=== PATIENT | female | born 1960 | race Caucasian/White ===

== ENCOUNTER 2023-06-11 13:11 | Outpatient (CLI) | payer BC, SELFPAY ==
--- NOTE | 2023-06-11 13:20 | CRLHL7_ITS ---
For Patients: As a result of the Century Cures Act, medical imaging exams and procedure reports are released immediately into your electronic medical record. You may view this report before your referring provider. If you have questions, please contact your health care provider. BILATERAL SCREENING MAMMOGRAM WITH COMPUTER-AIDED DETECTION AND TOMOSYNTHESIS TECHNIQUE: CC, MLO and Implant displaced views were obtained. These mammographic images have been obtained using full-field digital technique. These mammographic images were interpreted with the benefit of computer-aided detection. Breast Tomosynthesis was used in this interpretation. COMPARISON FILM: 08/09/20, 07/27/19, 08/16/17. FINDINGS: There are scattered areas of fibroglandular density IMPRESSION: There is no radiographic evidence for malignancy. ASSESSMENT: BI-RADS Category 2: Benign RECOMMENDATION: Routine screening mammogram in 1 year. A lay language report of this examination will be provided to the patient. Yrn White M.D. Diagnostic Radiologist [email or web address] JOSEPH/Dictated by: Yrn White MD @ 06/15/2023 8:28:00 AM (Electronically Signed)
== END 2023-06-11 13:12 | disposition home or self-care (01) ==
LOC: MAMMO 13:12
PROVIDERS: PCP Family Medicine; Visit Provider Family Medicine
DX: Z12.31 Encounter for screening mammogram for malignant neoplasm of breast (principal)
CPT/HCPCS: 77063; 77067

== ENCOUNTER 2024-09-18 10:01 | Outpatient (CLI) | payer BC, SELFPAY | END 2024-09-18 10:02 | disposition home or self-care (01) | LOC: NFLDREF 09-21 05:45 | PROVIDERS: PCP Family Medicine; Referring Provider Family Medicine; Visit Provider Family Medicine | DX: Z13.220 Encounter for screening for lipoid disorders (principal); Z13.228 Encounter for screening for other metabolic disorders | CPT/HCPCS: 80053; 80061 ==

== ENCOUNTER 2024-09-19 12:49 | Outpatient (CLI) | payer BC, SELFPAY ==
--- NOTE | 2024-09-19 13:00 | CRLHL7_ITS ---
For Patients: As a result of the Century Cures Act, medical imaging exams and procedure reports are released immediately into your electronic medical record. You may view this report before your referring provider. If you have questions, please contact your health care provider. BILATERAL SCREENING MAMMOGRAM WITH COMPUTER-AIDED DETECTION AND TOMOSYNTHESIS, 09/19/2024 TECHNIQUE: CC, MLO and Implant displaced views were obtained. These mammographic images have been obtained using full-field digital technique. These mammographic images were interpreted with the benefit of computer-aided detection. Breast Tomosynthesis was used in this interpretation. COMPARISON FILM: 06/11/23, 08/09/20, 07/17/19. FINDINGS: There are scattered areas of fibroglandular density IMPRESSION: There is no radiographic evidence for malignancy. ASSESSMENT: BI-RADS Category 2: Benign RECOMMENDATION: Routine screening mammogram in 1 year. A lay language report of this examination will be provided to the patient. Yrn White M.D. Diagnostic Radiologist [email or web address] DAVIDSON/[email or web address]: Transcribed: 8:58 am DW/Dictated by: Yrn White MD @ 09/20/2024 12:38:00 PM (Electronically Signed)
== END 2024-09-19 12:50 | disposition home or self-care (01) ==
LOC: MAMMO 12:49
PROVIDERS: PCP Family Medicine; Visit Provider Family Medicine
DX: Z12.31 Encounter for screening mammogram for malignant neoplasm of breast (principal)
CPT/HCPCS: 77063; 77067

== ENCOUNTER 2025-02-05 08:56 | Day surgery (SDC) | payer BC, SELFPAY ==
[2025-02-05] VITALS (13 sets, daily range): BP systolic 133–174; BP diastolic 74–90; PULSE 48–68; RESP 14–16; TEMP 36.4–36.9; O2SAT 95–99; BMI 26.2
[2025-02-05] MEDS: SODIUM CHLORIDE 0.9 % (FLUSH) 10 ML SYRINGE IVF (09:30)
[2025-02-05] MEDS: LACTATED RINGERS 1000 ML 1,000 ML 100 ML IV (09:30)
[2025-02-05] MEDS: CEFAZOLIN 1 GM inj IVP (09:41)
[2025-02-05] MEDS: BUPIVACAINE 0.25% 30 ML INJECTION (10:18)
[2025-02-05] MEDS: LIDOCAINE 1%-EPI 1:100,000 20 ML INFILTRATI (10:18)
--- NOTE | 2025-02-05 10:34 | PM.GSPRC ---
Operative Note Date of procedure: 02/05/25 Pre-op diagnosis: 1. Symptomatic umbilical hernia. Post-op diagnosis: Same Type of Procedure: 1. Open umbilical hernia repair with mesh. Indications: 65-year-old female was seen in clinic for evaluation of an umbilical hernia. Patient noticed supraumbilical bulge over a year prior to her presentation. She felt like when her grandkids jumped on her lap, the bulge was pushed on and caused her pain. She was also doing weightlifting and any other abdominal exercises increased her pain. The pain was described as dull. Patient denied any episodes of incarceration. On clinical exam she had a grape sized bulge at the superior aspect of the umbilicus that was not reducible. Patient had pain with attempted to reduce this hernia. Given patient's clinical history and her physical exam, an open umbilical hernia repair was recommended. The procedure was discussed in detail. The risks associated procedure including infection, bleeding, injury to preperitoneal organs, injury to intra-abdominal organs, and hernia recurrence were all discussed with the patient, and she agreed to proceed. Procedure Description: After discussing the risks and benefits of the procedure, the patient signed informed consent.? The operative site was marked and the patient was brought to the operating room and placed on the operating table in supine position.? Care was taken to pad the patient's pressure points.?? The patient was then intubated by anesthesia.?? The operative site was then prepped and draped in the usual sterile fashion.? A time-out was then performed. Local anesthetic was injected at the surgical site. A curvilinear skin incision was made with a scalpel just above umbilicus. Subcutaneous tissue was dissected with electrocautery down to the hernia sac and anterior fascia. Preperitoneal fat was incarcerated through the fascial defect. The hernia sac was dissected off of the anterior fascia and subcutaneous fat around the fascial defect was dissected away from the fascial defect with cautery. The main fascial defect was approximately 7 mm in largest dimension but there was also a tiny defect superior and left lateral to the main defect. The tiny defect was about 3 mm in diameter. These 2 defects were connected by fascial bridge that was approximately 4 mm. I elected to combine the 2 defects into 1 common fascial opening. Preperitoneal space was then developed with cautery for mesh placement. A small Ventralex ST mesh patch was then inserted into preperitoneal space and secured to the fascia using 0-0 Neurolon interrupted stitches. I examined my closure and no defects were identified between the fascia and the mesh. Fascia was re-approximated over the mesh with a running 2-0 Vicryl stitch. Additional local anesthetic was injected into subcutaneous tissues. An umbilicus was tacked down with interrupted 3-0 Vicryl stitches. Subdermal layer was closed with interrupted sutures using 3-0 Vicryl. Skin was closed with 4-0 Monocryl using subcuticular stitch. Steri strips were applied over the incision. I then placed a folded sterile 2 x 2 and 4x4 gauze over the incision and covered it with tape. All counts were correct at the end of the case. Patient tolerated the procedure well and was transferred to PACU without any complications. Findings: 2 fascial defects combined into a common defect and repaired with mesh. Anesthesia: GETA Surgeon: Olga Payne MD Estimated blood loss (mL): 2 Condition: stable Disposition: PACU
[2025-02-05] MEDS: ACETAMINOPHEN 325 MG TABLET PO (10:35)
--- NOTE | 2025-02-05 11:28 | P.ANES_ITS ---
Anesthesia Charges Start Date/Time Anesthesia Start Date: 02/05/25 Anesthesia Start Time: 09:32 Stop Date/Time Anesthesia Stop Date: 02/05/25 Anesthesia Stop Time: 10:35 Coding CPT Codes CPT Codes: ANESTH REPAIR OF HERNIA - 53886 ([id number]) P1 - NORMAL HEALTHY PATIENT, QK - EPIC WILLOW ANALYST 2-4 CNCRNT ANES PROC, QX - PRODUCTION OR PLANT ENGINEER SVDev W/ MED DIRECTION
--- NOTE | 2025-02-05 11:28 | W.ANESCHARGE ---
Anesthesia Charges Start Date/Time Anesthesia Start Date: 02/05/25 Anesthesia Start Time: 09:32 Stop Date/Time Anesthesia Stop Date: 02/05/25 Anesthesia Stop Time: 10:35 Coding CPT Codes CPT Codes: ANESTH REPAIR OF HERNIA - 15626 ([id number]) P1 - NORMAL HEALTHY PATIENT, QK - LEAD DATA ENTRY OPERATOR 2-4 CNCRNT ANES PROC, QX - CARPENTER PROTOTYPE SVDev W/ MED DIRECTION
--- NOTE | 2025-02-05 12:37 | P.ANES_ITS ---
Anesthesia Charges Start Date/Time Anesthesia Start Date: 02/05/25 Anesthesia Start Time: 09:32 Stop Date/Time Anesthesia Stop Date: 02/05/25 Anesthesia Stop Time: 10:35 Coding CPT Codes CPT Codes: ANESTH REPAIR OF HERNIA - 91961 ([id number]) QK - NUCLEAR WEAPONS SPECIALIST 2-4 CNCRNT ANES PROC, QX - COMPOSITION INSTRUCTOR SVC W/ MD MED DIRECTION, P1 - NORMAL HEALTHY PATIENT
--- NOTE | 2025-02-05 12:37 | W.ANESCHARGE ---
Anesthesia Charges Start Date/Time Anesthesia Start Date: 02/05/25 Anesthesia Start Time: 09:32 Stop Date/Time Anesthesia Stop Date: 02/05/25 Anesthesia Stop Time: 10:35 Coding CPT Codes CPT Codes: ANESTH REPAIR OF HERNIA - 04266 ([id number]) QK - POT SANDER 2-4 CNCRNT ANES PROC, QX - SUPPORT SERVICES MANAGER SVC W/ MD MED DIRECTION, P1 - NORMAL HEALTHY PATIENT
== END 2025-02-05 12:00 | disposition home or self-care (01) ==
PROVIDERS: PCP Family Medicine; Visit Provider Surgery
PROC: (CPT 49592; principal; 2025-02-05 09:00)
DX: K42.0 Umbilical hernia with obstruction, without gangrene (principal)
CPT/HCPCS: 49592; 00790; 00830; A9270; C1781; J0665; J0690; J1100; J1885; J2405; J2704; J3010; J7120